=== PATIENT | female | born 1955 | race Caucasian/White ===

== ENCOUNTER 2017-07-19 17:43 | Emergency (ER) | payer OTHER ==
[~2017-07-19] VITALS: Ht 157.5 cm; Wt 74.8 kg
[2017-07-19 17:55] VITALS: BP_SYST 156
--- NOTE | 2017-07-19 18:08 | NUR ---
Patient to ER bed 7 to gown for evaluation. Side rails up. Report given to Jodie COLIN.
--- NOTE | 2017-07-19 18:09 | NUR ---
ER Dr. Hinojosa at bedside examining patient.
--- NOTE | 2017-07-19 18:12 | NUR ---
India moscoso in ED - 07/19/17 at 1829 by [email or web address] MIRNA Pearce at bedside examining patient.
--- NOTE | 2017-07-19 18:13 | NUR ---
Pt states her and were shopping at [email or web address] when a metal trellis fell and hit the left side of her head. Pt mark loss of consciousness. No broken skin, bruising or swelling noted at this time. Will continue to monitor.
--- NOTE | 2017-07-19 18:23 | NUR ---
Pt off unit enroute to Radiology. Vital signs stable.
--- NOTE | 2017-07-19 18:34 | NUR ---
Pt returned to unit via Radiology staff. Will continue to monitor pt.
[2017-07-19 19:19] VITALS: BP_SYST 134
--- NOTE | 2017-07-19 19:19 | NUR ---
Patient given written and verbal discharge instructions and verbalizes understanding. ER MD Hinojosa discussed with patient the results and treatment provided. Patient in stable condition. ID arm band removed. Patient educated on pain management and to follow up with PMD. Pain Scale 0/10. Opportunity for questions provided and answered.
== END 2017-07-19 19:19 | disposition home or self-care (01) ==
LOC: SED 17:43
DX: S09.90XA Unspecified injury of head, initial encounter (principal); M54.2 Cervicalgia; I10 Essential (primary) hypertension; Z88.1 Allergy status to other antibiotic agents; Z90.710 Acquired absence of both cervix and uterus; W20.8XXA Other cause of strike by thrown, projected or falling object, initial encounter; Y93.89 Activity, other specified; Y92.89 Other specified places as the place of occurrence of the external cause; Y99.8 Other external cause status
CPT/HCPCS: 70450-TC; 72125-TC; 99284

== ENCOUNTER 2019-06-03 11:58 | Emergency (ER) | payer MEDICAID, OTHER ==
[~2019-06-03] VITALS: Ht 157.5 cm; Wt 88.5 kg
[2019-06-03 12:14] VITALS: BP_SYST 153
[2019-06-03] MEDS ORDERED: fentaNYL CITRATE/PF 100 MCG/2 ML AMP IM ONE (12:45)
[2019-06-03 13:23] LABS: BASOPHILS % (AUTO) 0.4 % (0.0-2.0); EOSINOPHILS # (AUTO) 0.1 K/uL (0.0-0.4); HEMATOCRIT 42.2 % (36-48); HEMOGLOBIN 13.7 g/dL (12.0-16.0); LYMPHOCYTES # (AUTO) 2.3 K/uL (1.0-5.5); LYMPHOCYTES % (AUTO) 37.2 % (20.5-51.5); MEAN CORPUSCULAR HEMOGLOBIN 25 pg (27-31); MEAN CORPUSCULAR HGB CONC 33 % (32-36); MEAN CORPUSCULAR VOLUME 77 fL (79.0-98.0); MONOCYTES # (AUTO) 0.3 K/uL (0.0-1.0); MONOCYTES % (AUTO) 4.6 % (1.7-9.3); NEUTROPHILS # (AUTO) 3.6 K/uL (1.8-7.7); NEUTROPHILS % (AUTO) 56.8 % (40.0-70.0); PLATELET COUNT (AUTO) 270 K/uL (130-430); RED BLOOD CELL COUNT(AUTO) 5.51 MIL/uL (4.2-6.2); RED CELL DISTRIBUTION WIDTH 14.7 % (9.0-15.0); WHITE BLOOD COUNT (AUTO) 6.3 K/uL (4.8-10.8)
[2019-06-03 13:32] LABS: CALCIUM 9.1 mg/dL (8.4-11.0); CREATININE 0.85 mg/dL (0.55-1.30); POTASSIUM 3.8 mmol/L (3.5-5.1)
[2019-06-03 13:38] LABS: ALBUMIN 3.8 g/dL (3.4-4.8); TOTAL BILIRUBIN 0.4 mg/dL (0.0-1.0)
[2019-06-03 14:30] VITALS: BP_SYST 153
== END 2019-06-03 14:30 | disposition home or self-care (01) ==
LOC: SED 11:58
DX: R10.30 Lower abdominal pain, unspecified (principal); M54.5 Low back pain; I10 Essential (primary) hypertension; Z88.1 Allergy status to other antibiotic agents
CPT/HCPCS: 36415; 80053; 83690-TC; 85025; 99284; J3010

== ENCOUNTER 2020-11-20 16:46 | Emergency (ER) | payer MEDICAID, SELFPAY ==
[~2020-11-20] VITALS: Ht 160 cm; Wt 70.3 kg
[2020-11-20 17:07] VITALS: BP_SYST 132
--- NOTE | 2020-11-20 17:10 | NUR ---
Patient to ER bed 8 to gown for evaluation. Side rails up. Report given to GIN COLIN.
--- NOTE | 2020-11-20 17:13 | NUR ---
ER at bedside examining patient.
--- NOTE | 2020-11-20 17:20 | NUR ---
CALM, ALERT, RESP UNLABORED, SKIN WARM AND DRY, HERE FOR C/O GENEAL WEAKNESS AND BODY ACHE.
[2020-11-20] MEDS ORDERED: ACETAMINOPHEN 500 MG TABLET PO ONE (17:30)
[2020-11-20] MEDS ORDERED: IBUPROFEN 600 MG TABLET PO ONE (17:30)
--- NOTE | 2020-11-20 17:31 | NUR ---
MEDICATED ORDERED, TOLERATING PO WELL
--- NOTE | 2020-11-20 17:39 | NUR ---
CXR IN PROGRESS
[2020-11-20 17:40] LABS: BASOPHILS % (AUTO) 0.8 % (0.0-2.0); EOSINOPHILS % (AUTO) 0.5 % (0.0-4.0); HEMATOCRIT 39.9 % (36-48); HEMOGLOBIN 13.1 g/dL (12.0-16.0); LYMPHOCYTES # (AUTO) 1.3 K/uL (1.0-5.5); MEAN CORPUSCULAR HEMOGLOBIN 25 pg (27-31); MEAN CORPUSCULAR HGB CONC 33 % (32-36); MEAN CORPUSCULAR VOLUME 75 fL (79.0-98.0); MONOCYTES # (AUTO) 0.5 K/uL (0.0-1.0); MONOCYTES % (AUTO) 7.8 % (1.7-9.3); NEUTROPHILS % (AUTO) 68.9 % (40.0-70.0); PLATELET COUNT (AUTO) 243 K/uL (130-430); RED BLOOD CELL COUNT(AUTO) 5.35 MIL/uL (4.2-6.2); RED CELL DISTRIBUTION WIDTH 15.3 % (9.0-15.0); WHITE BLOOD COUNT (AUTO) 5.8 K/uL (4.8-10.8)
[2020-11-20 17:51] LABS: ANION GAP 10 (5-15); CALCIUM 8.7 mg/dL (8.4-11.0); CHLORIDE 105 mmol/L (98-107); CREATININE 0.72 mg/dL (0.55-1.30); GLUCOSE 107 mg/dL (70-99); POTASSIUM 3.6 mmol/L (3.5-5.1); SODIUM SERUM 142 mmol/L (136-145); UREA NITROGEN, BLOOD 14 mg/dL (8-21)
[2020-11-20 17:55] LABS: GFR AFRICAN AMERICAN 105 mL/min (>90)
--- NOTE | 2020-11-20 18:12 | NUR ---
RESTING EASY, NO DISTRESS, COMMUNICATES CLEARLY IN FULL COMPLETE SENTECES, SKIN WARM AND DRY
--- NOTE | 2020-11-20 18:29 | NUR ---
Patient given written and verbal discharge instructions and verbalizes understanding. ER MD discussed with patient the results and treatment provided. Patient in stable condition. ID arm band removed. Patient educated on pain management and to follow up with PMD. Pain Scale 2/10 Opportunity for questions provided and answered. Medication side effect fact sheet provided.
[2020-11-20 18:30] VITALS: BP_SYST 131
== END 2020-11-20 18:30 | disposition home or self-care (01) ==
LOC: SED 16:46
DX: U07.1 COVID-19 (principal); I10 Essential (primary) hypertension; Z88.1 Allergy status to other antibiotic agents
CPT/HCPCS: 36415; 71045; 80048; 84484; 85025; 93005; 99285

== ENCOUNTER 2022-10-21 16:58 | Emergency (ER) | payer OTHER, MEDICAID ==
[~2022-10-21] VITALS: Ht 157.5 cm; Wt 79.4 kg
[2022-10-21 17:00] VITALS: BP_SYST 145
--- NOTE | 2022-10-21 17:00 | NUR ---
Patient triaged and placed in waiting room. VSS and patient appears in no acute distress at this time. Accompanied by DAUGHTER, awaiting available bed, and MD notified of need for MSE.
--- NOTE | 2022-10-21 17:08 | NUR ---
PT STATES ONE WEEK WITH RIGHT FLANK PAIN RADIATING DOWN TO RIGHT LOWER QUADRANT. PT STATES SHE DID LABS WITH URINE THIS AM BUT CAME TO ER BEFORE GETTING RESULTS DUE TO INCREASED PAIN.
[2022-10-21 17:55] LABS: BILIRUBIN,URINE NEGATIVE (NEGATIVE); BLOOD, URINE NEGATIVE (NEGATIVE); CLARITY/URINE CLEAR (CLEAR); COLOR,URINE YELLOW (YELLOW); GLUCOSE,URINE NEGATIVE (NEGATIVE); KETONES,URINE NEGATIVE (NEGATIVE); LEUKOCYTE ESTERASE ,URINE NEGATIVE (NEGATIVE); NITRITE, URINE NEGATIVE (NEGATIVE); PROTEIN URINE NEGATIVE (NEGATIVE); UROBILINOGEN,URINE 0.2 (0.2-1.0)
[2022-10-21 18:16] LABS: BASOPHILS % (AUTO) 0.4 % (0.0-2.0); EOSINOPHILS # (AUTO) 0.1 K/uL (0.0-0.4); EOSINOPHILS % (AUTO) 1.3 % (0.0-4.0); HEMATOCRIT 40.9 % (36-48); HEMOGLOBIN 13.4 g/dL (12.0-16.0); LYMPHOCYTES % (AUTO) 37.6 % (20.5-51.5); MEAN CORPUSCULAR HEMOGLOBIN 25 pg (27-31); MEAN CORPUSCULAR HGB CONC 33 % (32-36); MEAN CORPUSCULAR VOLUME 77 fL (79.0-98.0); MONOCYTES # (AUTO) 0.5 K/uL (0.0-1.0); MONOCYTES % (AUTO) 5.9 % (1.7-9.3); NEUTROPHILS # (AUTO) 4.4 K/uL (1.8-7.7); NEUTROPHILS % (AUTO) 54.8 % (40.0-70.0); PLATELET COUNT (AUTO) 278 K/uL (130-430); RED BLOOD CELL COUNT(AUTO) 5.33 MIL/uL (4.2-6.2); RED CELL DISTRIBUTION WIDTH 14.5 % (9.0-15.0)
[2022-10-21] MEDS ORDERED: HYDROcodone/ACETAMIN 5-325 MG TAB (NORCO/ VICODIN) PO ONE (19:30)
[2022-10-21] MEDS ORDERED: HYDR-3917 PO (19:30)
[2022-10-21] MEDS ORDERED: ONDA-8 TL (19:30)
[2022-10-21] MEDS ORDERED: ACET-2634 PO (19:30)
[2022-10-21 19:33] LABS: ALBUMIN 3.8 g/dL (3.4-4.8); CALCIUM 9.2 mg/dL (8.4-11.0); CREATININE 0.75 mg/dL (0.55-1.30); TOTAL BILIRUBIN 0.2 mg/dL (0.0-1.0)
--- NOTE | 2022-10-21 19:59 | NUR ---
Dr. Samuel in triage room examining the patient.
--- NOTE | 2022-10-21 20:00 | NUR ---
Patient given written and verbal discharge instructions and verbalizes understanding. ER MD discussed with patient the results and treatment provided. Patient in stable condition. ID arm band removed. Rx of ACETAMINOPHEN, NORCO AND ONDANSETRON given. Patient educated on pain management and to follow up with PMD. Pain Scale 7/10. Opportunity for questions provided and answered. Medication side effect fact sheet provided.
[2022-10-21 20:01] VITALS: BP_SYST 118
[2022-10-22] MEDS ORDERED: IBUP-1969 PO (16:30)
== END 2022-10-21 20:01 | disposition home or self-care (01) ==
LOC: SED 16:58
DX: R10.9 Unspecified abdominal pain (principal); R35.0 Frequency of micturition; I10 Essential (primary) hypertension; Z88.1 Allergy status to other antibiotic agents; Z79.899 Other long term (current) drug therapy
CPT/HCPCS: 36415; 76376; 80053; 81003; 83690; 85025; 99284

== ENCOUNTER 2022-10-22 14:39 | Emergency (ER) | payer OTHER, MEDICAID ==
[~2022-10-22] VITALS: Ht 157.5 cm; Wt 81.2 kg
[~2022-10-22 14:39] MED LIST: ACET-2634 PO; HYDR-3917 PO; ONDA-8 TL
[2022-10-22 15:41] VITALS: BP_SYST 132
--- NOTE | 2022-10-22 15:48 | NUR ---
Patient triaged and placed in waiting room. VSS and patient appears in no acute distress at this time. Accompanied by SPOUSE, awaiting available bed, and MD notified of need for MSE.
[2022-10-22] MEDS ORDERED: IBUP-1969 PO (16:30)
[2022-10-22 17:07] VITALS: BP_SYST 142
--- NOTE | 2022-10-22 17:17 | NUR ---
Patient given written and verbal discharge instructions and verbalizes understanding. ER MD discussed with patient the results and treatment provided. Patient in stable condition. ID arm band removed. IV catheter removed intact and dressing applied, no active bleeding. Rx of ibuprophen, meclizine given. Patient educated on pain management and to follow up with PMD. Pain Scale . Opportunity for questions provided and answered. Medication side effect fact sheet provided.
== END 2022-10-22 17:17 | disposition home or self-care (01) ==
LOC: SED 14:39
DX: S63.621A Sprain of interphalangeal joint of right thumb, initial encounter (principal); S63.501A Unspecified sprain of right wrist, initial encounter; I10 Essential (primary) hypertension; Z79.899 Other long term (current) drug therapy; V89.2XXA Person injured in unspecified motor-vehicle accident, traffic, initial encounter; Y93.89 Activity, other specified; Y92.89 Other specified places as the place of occurrence of the external cause; Y99.8 Other external cause status
CPT/HCPCS: 99283